=== PATIENT | female | born 1955 | race Caucasian/White ===

== ENCOUNTER → 2017-01-07 | Outpatient (CLI) | payer MEDICARE ==
--- NOTE | 2017-01-07 15:49 | CARD ---
APPROVED REPORT EXAM: Two-dimensional and M-mode echocardiogram with Doppler and color Doppler. Other Information Quality : Good INDICATION Dyspnea 2D DIMENSIONS Left Atrium(2D)2.1 (1.6-4.0cm)IVSd0.6 (0.7-1.1cm) Aortic Root(2D)2.6 (2.0-3.7cm)LVDd4.0 (3.9-5.9cm) LVOT Diameter1.8 (1.8-2.4cm)PWd0.6 (0.7-1.1cm) LVDs3.0 (2.5-4.0cm)FS (%) 25.4 % SV35.0 mlLVEF(%)55.0 (>50%) Aortic Valve AoV Peak Jayden.110.2cm/sAoV VTI21.9cm AO Peak GR.4.9mmHgLVOT Peak Jayden.75.3cm/s AO Mean GR.3mmHgAVA (VMAX)1.72cm2 Mitral Valve MV E Ogpuityz31.0cm/sMV DECEL RRQA264mi MV A Fsxfnmec02.4cm/sE/A Ratio0.8 Tricuspid Valve TR P. Wtwnewzw456gi/sRAP BVBEKPRY4caYf TR Peak Gr.99dwFgYIKD63mbAl Pulmonary Vein S1 Jjrkasal62.4cm/sD2 Eyruchta60.2cm/s LEFT VENTRICLE The left ventricle is normal size. There is normal left ventricular wall thickness. The left ventricu lar systolic function is normal. The Ejection Fraction is 55%. There is normal LV segmental wall liat on. Transmitral Doppler flow pattern is Grade I-abnormal relaxation pattern. RIGHT VENTRICLE The right ventricle is normal size. The right ventricular systolic function is normal. ATRIA The left atrium size is normal. The right atrium size is normal. The interatrial septum is intact wit h no evidence for an atrial septal defect or patent foramen ovale as noted on 2-D or Doppler imaging. AORTIC VALVE The aortic valve is normal in structure and function. Doppler and Color Flow revealed no significant aortic regurgitation. There is no significant aortic valvular stenosis. MITRAL VALVE The mitral valve is normal in structure and function. There is no evidence of mitral valve prolapse. There is no mitral valve stenosis. Doppler and Color-flow revealed trace mitral regurgitation. TRICUSPID VALVE The tricuspid valve is normal in structure and function. Doppler and Color Flow revealed mild tricusp id regurgitation. There is severe pulmonary hypertension. The PA pressure was estimated at 83 mmHg. T here is no tricuspid valve stenosis. PULMONIC VALVE The pulmonary valve is normal in structure and function. Doppler and Color Flow revealed no pulmonic valvular regurgitation. There is no pulmonic valvular stenosis. GREAT VESSELS The aortic root is normal in size. The ascending aorta is not well seen. The IVC is normal in size an d collapses >50% with inspiration. PERICARDIAL EFFUSION There is no evidence of significant pericardial effusion. Critical Notification Critical Value: No <Conclusion> The left ventricular systolic function is normal. The Ejection Fraction is 55%. There is normal LV segmental wall motion. Transmitral Doppler flow pattern is Grade I-abnormal relaxation pattern. Trace mitral regurgitation. Mild tricuspid regurgitation. There is severe pulmonary hypertension. The PA pressure was estimated at 83 mmHg. There is no evidence of significant pericardial effusion.
== END | disposition home or self-care (01) ==
LOC: ECHO 14:00
PROVIDERS: ATTEND Internal Medicine Cardiovascular Disease
DX: I08.1 Rheumatic disorders of both mitral and tricuspid valves (principal); I27.2 Other secondary pulmonary hypertension; R06.02 Shortness of breath; R06.00 Dyspnea, unspecified
CPT/HCPCS: 93306

== ENCOUNTER → 2017-01-15 | Outpatient (CLI) | payer MEDICARE ==
--- NOTE | 2017-01-15 11:49 | RAD ---
Chest x-ray Indication: COPD, palpitations and shortness of breath Technique: PA and lateral views of the chest Comparison: Previous study from 02/01/2010 Findings: Heart is normal in size. Lungs are hyperinflated with flattening of diaphragms and increased retrosternal space. No pneumothorax or pleural effusion. No focal consolidation or interstitial opacities. Multilevel degenerative changes in the spine. Otherwise, visualized bony first within normal limits. Impression: Findings of COPD. No acute cardiopulmonary process.
== END | disposition home or self-care (01) ==
LOC: LAB 10:43
PROVIDERS: ATTEND Internal Medicine Cardiovascular Disease
DX: J44.9 Chronic obstructive pulmonary disease, unspecified (principal); R00.2 Palpitations
CPT/HCPCS: 71020

== ENCOUNTER → 2019-10-02 | Outpatient (CLI) | payer MEDICARE ==
[2019-04-05 11:00] VITALS: BP 147/79
[~2019-10-02] MED LIST: ALBU2.5V8 INH; BUDE10.2 IH; CEFD300C PO; DOXY100C14 PO; Nicotine 21MG TD; PRED20TA PO; PRED5TAB PO; SERT25TA PO
--- NOTE | 2019-10-02 18:15 | RAD ---
EXAM: PET W CT SKULL TO MIDTHIGH EXAM DATE: 10/02/2019 INDICATION: Reason: / Spl. Instructions: / History: RADIOPHARMACEUTICAL: 12.1 mCi of F-18 Fluorodeoxyglucose (FDG) I.V. via the right antecubital fossa. TECHNIQUE: Patient weight: 112 pounds. Following at least four-hour fasting, the patient's blood glucose was 105 mg/dl. Approximately 1 hour after administration of FDG, overlapping emission scanning was performed from the orbital meatal line through the pelvis. A low-dose CT was performed for attenuation correction purposes and anatomic localization. Fused images of PET and CT were reviewed. Any standardized uptake values (SUV) reported are maximum values within a volume region of interest, expressed in gm/ml. COMPARISON: CT chest without IV contrast of 04/02/2019 FINDINGS: PET: In the head and neck, no abnormal FDG uptake is appreciated. In the chest, a spiculated right apical lung nodule shows abnormal FDG uptake to max SUV of 7.08. This compares with a background mediastinal activity of 2.00. A left lower lobe lobulated pulmonary nodule measures 8 mm on this exam and shows no abnormal FDG uptake. In the abdomen and pelvis, asymmetric FDG uptake in the left quadratus lumborum muscle to max SUV of 3.99 is present. There are no findings suspicious for metabolically active malignancy in the abdomen or pelvis. Background FDG uptake in liver measures 2.15. CT: Head and neck shows atherosclerotic calcifications in the bilateral carotid bulbs no cervical adenopathy. No intracranial pathology noted. The chest shows moderately advanced centrilobular emphysema. Previously reported infiltrate in the right middle lobe has since resolved. A spiculated right upper lobe pulmonary nodule measuring 1.5 cm has enlarged from 1.0 cm. A left lower lobe 8 mm pulmonary nodule is unchanged. No pleural effusion. There is respiratory motion artifact that degrades detail. The abdomen and pelvis show atherosclerotic calcifications in the abdominal aorta without aneurysmal dilation. The adrenal glands are unremarkable. No liver masses identified. No aggressive osseous lesions seen. IMPRESSION: 1. Hypermetabolic spiculated 1.5 cm right apical pulmonary nodule, highly suggestive of a primary malignancy. No other abnormal FDG uptake suspicious for metabolically active malignancy in the included field of view. 2. An 8 mm left lower lobe pulmonary nodule shows no abnormal FDG uptake. Recommend attention on follow-up chest CT in 3 months if not targeted for biopsy in the interval. It is unclear if this has enlarged from 4 mm previously or represents an intrapulmonary lymph node that is imaged slightly differently due to variation in respiratory motion. Electronically signed by: Debbie Moulton MD (10/02/2019 6:12 PM) [id number]
== END ==
LOC: PETSC 09:14
PROVIDERS: ATTEND Internal Medicine Pulmonary Disease
DX: C80.1 Malignant (primary) neoplasm, unspecified (principal); I70.0 Atherosclerosis of aorta; R91.1 Solitary pulmonary nodule; I65.23 Occlusion and stenosis of bilateral carotid arteries; J43.2 Centrilobular emphysema
CPT/HCPCS: 78815; A9552

== ENCOUNTER 2019-11-13 07:12 | Inpatient (IN) | payer MEDICARE ==
[~2019-11-13] VITALS: Ht 162.6 cm; Wt 50.7 kg
[2019-11-13] VITALS (31 sets, daily range): BP systolic 100–184; BP diastolic 45–107
[2019-11-13] MEDS ORDERED: SERT25TA PO (07:33)
[2019-11-13] MEDS ORDERED: ALPR0.254 PO (07:33)
[2019-11-13] MEDS ORDERED: FLUT1BLS3 IH (07:33)
[2019-11-13 07:56] LABS: BASO % 0 % (0-3); EOS # 0.1 x10^3/uL (0.0-0.7); EOS % 2 % (0-3); HEMATOCRIT 40.6 % (36.0-47.0); HEMOGLOBIN 13.8 g/dL (12.0-15.5); LYMPH # 1.6 x10^3/uL (1.0-4.8); LYMPH % 27 % (24-48); MEAN CORPUSCULAR HEMOGLOBIN 34 pg (25-35); MEAN CORPUSCULAR HGB CONC 34 g/dL (31-37); MEAN CORPUSCULAR VOLUME 101 fL (79-100); MONO # 0.6 x10^3/uL (0.0-1.1); MONO % 10 % (0-9); NEUT # 3.8 x10^3/uL (1.8-7.7); NEUT % 62 % (31-73); PLATELET COUNT 332 x10^3/uL (140-400); RED BLOOD COUNT 4.01 x10^6/uL (3.50-5.40); RED CELL DISTRIBUTION WIDTH 12.4 % (11.5-14.5); WHITE BLOOD COUNT 6.1 x10^3/uL (4.0-11.0)
[2019-11-13 08:09] LABS: PROTHROMBIN TIME PATIENT 12.4 SEC (11.7-14.0)
[2019-11-13] MEDS ORDERED: LIDOCAINE WITH 8.4% SOD BICARB 3 ML DISP.SYRIN. ONE ×2 (08:13→09:17)
[2019-11-13] MEDS ORDERED: MIDAZOLAM HCL/PF 2 MG/2 ML VIAL. ONE (08:30)
[2019-11-13] MEDS ORDERED: fentaNYL PF VIAL 100 MCG/2 ML VIAL ONE (08:30)
[2019-11-13] MEDS ORDERED: fentaNYL PF VIAL 100 MCG/2 ML VIAL IV ONE (08:45)
[2019-11-13] MEDS ORDERED: LIDOCAINE WITH 8.4% SOD BICARB 3 ML DISP.SYRIN. IJ ONE (08:45)
[2019-11-13] MEDS ORDERED: MIDAZOLAM HCL/PF 2 MG/2 ML VIAL. IV ONE (08:45)
[2019-11-13] MEDS ORDERED: GELATIN SPONGE SIZE 12-7MM SPONGE. ONE (09:05)
[2019-11-13] MEDS: IPRATRPIUM/ALBUTEROL 0.5/2.5MG 3 ML NEBU. NEB SCH ×3 (11:43→20:27)
--- NOTE | 2019-11-13 11:46 | CONS ---
DATE OF CONSULTATION: PULMONARY CONSULTATION ATTENDING PHYSICIAN: Sheryl Galvez MD. REASON FOR CONSULTATION: Pneumothorax, status post lung biopsy. HISTORY OF PRESENT ILLNESS: The patient is a 64-year-old who has a long history of tobacco use. She has been followed by Dr. Tierney in the office. The patient smoked for at least 45 years. She had a recent CAT scan done, which showed that there was a spiculated right upper lobe nodule, which is increased in size to 1.5 cm from previous size of 1.1 cm. She underwent PET scan and showed a hypermetabolic lung nodule. There was another 8 mm nodule in the left lower lobe, which did not show any hypermetabolic activity. Today, she underwent a CT-guided biopsy and developed a pneumothorax post-biopsy. As a result, she required chest tube. She has an air leak. I have reviewed the chest x-ray. There may be a tiny right apical pneumo. She is in no obvious respiratory distress. She is on home oxygen at 2 liters. PAST MEDICAL HISTORY: Significant for COPD and history of anxiety. PAST SURGICAL HISTORY: None. MEDICATIONS: Reviewed as listed in the MRAD. REVIEW OF SYSTEMS: Twelve-point system obtained. Pertinent positives discussed in my history of present illness, otherwise noncontributory. All systems that were negative were reviewed as well. SOCIAL HISTORY: Smoked for about 45 years. No history of alcohol use. FAMILY HISTORY: Noncontributory to lungs. PHYSICAL EXAMINATION: VITAL SIGNS: Reviewed. Stable. Pulse ox is 95% on 4 liters, afebrile. Blood pressure is stable. NECK: Supple. LUNGS: With diminished breath sounds. CARDIOVASCULAR: With a regular rate. ABDOMEN: Soft. EXTREMITIES: With no pitting edema. LABORATORY DATA: Reviewed. White cell count 6.1, hemoglobin 13.8, and platelets are 332. INR is 1.0. PFTs showed a FEV1 of 0.76, which is 34% predicted, ratio is severely reduced, this is consistent with severe COPD. Diffusion capacity 30% predicted. IMPRESSION: 1. acute on chronic hypoxic respiratory failure secondary to pneumothorax./ UNDERLYING SEVERE COPD 2. Spiculated right upper lobe nodule with increased growth and hypermetabolic activity seen in the right upper lobe nodule, which now measures 1.5 cm as opposed to 1.1 cm in 01/2019. This is highly suggestive of malignancy. She is status post biopsy. 3. End-stage chronic obstructive pulmonary disease with an FEV1 of 0.76, which is 34% predicted and severely reduced diffusion capacity, which is 30% predicted. She is not a surgical candidate based on severity of lung disease. 4. Status post pneumothorax post CT-guided biopsy. She does have an air leak on Pleur-evac. Chest x-ray with probably tiny right atypical pneumo. RECOMMENDATIONS: 1. Continue present oxygen at 4 liters. She has acute on chronic hypoxic respiratory failure secondary to pneumothorax. 2. Continue to monitor for air leak. 3. Follow chest x-ray. 4. Add bronchodilators. 5. Await for the final biopsy results. 6. Once malignancy is confirmed, then she may benefit from palliative radiation. Based on her lung function, she is not a surgical candidate. Discussed with the patient's daughter and RN. PASCUAL CANO MD DR: JC/marissa JOB#: [id number] / [id number] ADRIANA
--- NOTE | 2019-11-13 11:48 | RAD ---
AP chest. HISTORY: Chest tube placement, pneumothorax post lung biopsy, right lung mass AP view was taken of the chest. There are changes from emphysema and chronic obstructive pulmonary disease. There is a right chest tube in place. There is a small right apical pneumothorax. There is no pleural effusion. Heart is normal in size. IMPRESSION: 1. Right chest tube in place. 2. Tiny right apical pneumothorax. Electronically signed by: Roscoe Sierra MD (11/13/2019 11:45 AM) [id number]
[2019-11-13] MEDS ORDERED: ALPRAZolam 0.25 MG TABLET PO PRN (13:15)
[2019-11-13] MEDS ORDERED: oxyCODONE/APAP 5/325 1 TAB TABLET PO PRN (13:15)
[2019-11-13] MEDS ORDERED: DOCUSATE SODIUM 100 MG CAPSULE. PO PRN (13:15)
[2019-11-13] MEDS ORDERED: ZOLPIDEM 5 MG TABLET. PO PRN (13:15)
--- NOTE | 2019-11-13 13:34 | NUR ---
SS following for discharge planning. SS reviewed pt chart and discussed with pt RN. Pt is from home and is currently requiring oxygen. Pt had lung biopsy today and chest tube placement today. Pt has home oxygen. SS will continue to follow for discharge planning.
--- NOTE | 2019-11-13 14:08 | PDOC1 ---
History and Physical Date of Admission Date of Admission DATE: 11/13/19 TIME: 14:02 Identification/Chief Complaint Chief Complaint chest pain Source Source: Chart review, Patient History of Present Illness History of Present Illness I was called for admit this AM after pneumothorax seen after proceedure. Pt has COPD, known severe disease and follows with Dr. Tierney, she came in today for a biopsy of a lung mass, if pos would be eligible for palliative radiation ' Past Medical History Cardiovascular: HTN Pulmonary: COPD GI: No pertinent hx Heme/Onc: No pertinent hx Hepatobiliary: No pertinent hx Psych: No pertinent hx Infectious disease: No pertinent hx Renal/: No pertinent hx Endocrine: No pertinent hx Past Surgical History Past Surgical History: No pertinent history Family History Family History: Chronic Bronchitis, High Cholestrol, Hypertension Social History Smoke: Quit (45 pack/yr history) ALCOHOL: rare Drugs: None Current Medications Current Medications Current Medications Lidocaine HCl (Buffered Lidocaine 1%) 3 ml STK-MED ONCE .ROUTE ; Start 11/13/19 at 08:13; Stop 11/13/19 at 08:13; Status DC Midazolam HCl (Versed) 2 mg STK-MED ONCE .ROUTE ; Start 11/13/19 at 08:30; Stop 11/13/19 at 08:30; Status DC Fentanyl Citrate (Fentanyl 2ml Vial) 100 mcg STK-MED ONCE .ROUTE ; Start 11/13/19 at 08:30; Stop 11/13/19 at 08:30; Status DC Lidocaine HCl (Buffered Lidocaine 1%) 3 ml 1X ONCE IJ Last administered on 11/13/19at 09:35; Start 11/13/19 at 08:45; Stop 11/13/19 at 08:46; Status DC Midazolam HCl (Versed) 2 mg 1X ONCE IV Last administered on 11/13/19at 09:36; Start 11/13/19 at 08:45; Stop 11/13/19 at 08:46; Status DC Fentanyl Citrate (Fentanyl 2ml Vial) 100 mcg 1X ONCE IV Last administered on 11/13/19at 09:36; Start 11/13/19 at 08:45; Stop 11/13/19 at 08:46; Status DC Gelatin (Gelfoam Size 12-7mm) 1 each STK-MED ONCE .ROUTE ; Start 11/13/19 at 09:05; Stop 11/13/19 at 09:06; Status DC Lidocaine HCl (Buffered Lidocaine 1%) 3 ml STK-MED ONCE .ROUTE ; Start 11/13/19 at 09:17; Stop 11/13/19 at 09:17; Status DC Albuterol/ Ipratropium (Duoneb) 3 ml RTQID NEB Last administered on 11/13/19at 11:43; Start 11/13/19 at 12:00 Alprazolam (Xanax) 0.25 mg PRN Q6HRS PRN PO ANXIETY / AGITATION; Start 11/13/19 at 13:15 Sertraline HCl (Zoloft) 25 mg DAILY PO ; Start 11/14/19 at 09:00 Non-Formulary Medication (Fluticasone/ Umeclidin/ Vilanter (Trelegy Ellipta 100-62.5-25)) 1 each DAILY IH ; Start 11/14/19 at 09:00; Status UNV Oxycodone/ Acetaminophen (Percocet 5/325) 1 tab PRN Q4HRS PRN PO PAIN; Start 11/13/19 at 13:15 Zolpidem Tartrate (Ambien) 5 mg PRN QHS PRN PO INSOMNIA; Start 11/13/19 at 13:15 Docusate Sodium (Colace) 100 mg PRN DAILY PRN PO HARD STOOLS; Start 11/13/19 at 13:15 Active Scripts Active Reported Alprazolam 0.25 Mg Tablet 0.25 Mg PO PRN Q6HRS PRN Zoloft (Sertraline Hcl) 25 Mg Tablet 1 Tab PO DAILY Trelegy Ellipta 100-62.5-25 (Fluticasone/Umeclidin/Vilanter) 1 Each Blst.w.dev 1 Each IH DAILY Allergies Allergies: Coded Allergies: No Known Drug Allergies (Unverified , 10/08/18) ROS General: No: Chills, Night Sweats, Fatigue, Malaise, Appetite, Other PSYCHOLOGICAL ROS: No: Anxiety, Behavioral Disorder, Concentration difficultie, Decreased libido, Depression, Disorientation, Hallucinations, Hostility, Irritablity, Memory difficulties, Mood Swings, Obsessive thoughts, Physical abuse, Sexual abuse, Sleep disturbances, Suicidal ideation, Other Eyes: No Blurry vision, No Decreased vision, No Double vision, No Dry eyes, No Excessive tearing, No Eye Pain, No Itchy Eyes, No Loss of vision, No Photophobia, No Scotomata, No Uses contacts, No Uses glasses, No Other HEENT: No: Heacaches, Visual Changes, Hearing change, Nasal congestion, Nasal discharge, Oral lesions, Sinus pain, Sore Throat, Epistaxis, Sneezing, Snoring, Tinnitus, Vertigo, Vocal changes, Other Respiratory: No: Cough, Hemoptysis, Orthopnea, Pleuritic Pain, Shortness of breath, SOB with excertion, Sputum Changes, Stridor, Tachypnea, Wheezing, Other Cardiovascular: yes Chest Pain (sore); No Palpitations, No Orthopnea, No Paroxysmal Noc. Dyspnea, No Edema, No Lt Headedness, No Other Gastrointestinal: Yes Nausea Genitourinary: No Dysuria, No Frequency, No Incontinence, No Hematuria, No Retention, No Discharge, No Urgency, No Pain, No Flank Pain, No Other, No , No , No , No , No , No , No Musculoskeletal: No Gait Disturbance, No Joint Pain, No Joint Stiffness, No Joint Swelling, No Muscle Pain, No Muscular Weakness, No Pain In:, No Swelling In:, No Other Neurological: No Behavorial Changes, No Bowel/Bladder ControlChng, No Confusion, No Dizziness, No Gait Disturbance, No Headaches, No Impaired Coord/balance, No Memory Loss, No Numbness/Tingling, No Seizures, No Speech Problems, No Tremors, No Visual Changes, No Weakness, No Other Skin: Yes Dry Skin, Yes Pruritus; No Eczema, No Hair Changes, No Lumps, No Mole Changes, No Mottling, No Nail Changes, No Rash, No Skin Lesion Changes, No Other, No Acne Physical Exam General: Alert, Oriented X3, Cooperative, No acute distress HEENT: Atraumatic, PERRLA, Mucous membr. moist/pink Lungs: Normal air movement Heart: S1S2, no murmurs Abdomen: Normal bowel sounds, Soft Extremities: No cyanosis, No edema, Normal pulses Skin: No breakdown Neuro: Cranial nerves 3-12 NL Psych/Mental Status: Mood NL Vitals Vitals Vital Signs Date Time Temp Pulse Resp B/P (MAP) Pulse Ox O2 Delivery O2 Flow Rate FiO2 11/13/19 12:42 Nasal Cannula 4.0 11/13/19 11:44 98 11/13/19 10:56 62 24 145/56 (85) 11/13/19 09:45 97.7 97.7 Labs Labs Laboratory Tests Test 11/13/19 07:42 White Blood Count 6.1 x10^3/uL (4.0-11.0) Red Blood Count 4.01 x10^6/uL (3.50-5.40) Hemoglobin 13.8 g/dL (12.0-15.5) Hematocrit 40.6 % (36.0-47.0) Mean Corpuscular Volume 101 fL (79-100) Mean Corpuscular Hemoglobin 34 pg (25-35) Mean Corpuscular Hemoglobin Concent 34 g/dL (31-37) Red Cell Distribution Width 12.4 % (11.5-14.5) Platelet Count 332 x10^3/uL (140-400) Neutrophils (%) (Auto) 62 % (31-73) Lymphocytes (%) (Auto) 27 % (24-48) Monocytes (%) (Auto) 10 % (0-9) Eosinophils (%) (Auto) 2 % (0-3) Basophils (%) (Auto) 0 % (0-3) Neutrophils # (Auto) 3.8 x10^3/uL (1.8-7.7) Lymphocytes # (Auto) 1.6 x10^3/uL (1.0-4.8) Monocytes # (Auto) 0.6 x10^3/uL (0.0-1.1) Eosinophils # (Auto) 0.1 x10^3/uL (0.0-0.7) Basophils # (Auto) 0.0 x10^3/uL (0.0-0.2) Prothrombin Time 12.4 SEC (11.7-14.0) Prothromb Time International Ratio 1.0 (0.8-1.1) Activated Partial Thromboplast Time 35 SEC (24-38) Laboratory Tests Test 11/13/19 07:42 White Blood Count 6.1 x10^3/uL (4.0-11.0) Red Blood Count 4.01 x10^6/uL (3.50-5.40) Hemoglobin 13.8 g/dL (12.0-15.5) Hematocrit 40.6 % (36.0-47.0) Mean Corpuscular Volume 101 fL (79-100) Mean Corpuscular Hemoglobin 34 pg (25-35) Mean Corpuscular Hemoglobin Concent 34 g/dL (31-37) Red Cell Distribution Width 12.4 % (11.5-14.5) Platelet Count 332 x10^3/uL (140-400) Neutrophils (%) (Auto) 62 % (31-73) Lymphocytes (%) (Auto) 27 % (24-48) Monocytes (%) (Auto) 10 % (0-9) Eosinophils (%) (Auto) 2 % (0-3) Basophils (%) (Auto) 0 % (0-3) Neutrophils # (Auto) 3.8 x10^3/uL (1.8-7.7) Lymphocytes # (Auto) 1.6 x10^3/uL (1.0-4.8) Monocytes # (Auto) 0.6 x10^3/uL (0.0-1.1) Eosinophils # (Auto) 0.1 x10^3/uL (0.0-0.7) Basophils # (Auto) 0.0 x10^3/uL (0.0-0.2) Prothrombin Time 12.4 SEC (11.7-14.0) Prothromb Time International Ratio 1.0 (0.8-1.1) Activated Partial Thromboplast Time 35 SEC (24-38) VTE Prophylaxis Ordered VTE Prophylaxis Devices: No VTE Pharmacological Prophylaxi: Yes Assessment/Plan Assessment/Plan acute new pneumothorax, post procedure, acute on chronic hypoxic respiratory failure COPD, severe, FEV1 of 0.76 right upper lobe nodule supicious for cancer. 1.5cm Justicifation of Admission Dx: Justifications for Admission: Justification of Admission Dx: Yes Comments: pneumothorax, new chest pain NAKUL PANDA MD Nov 13, 2019 14:07
[2019-11-13] MEDS ORDERED: diphenhydrAMINE HCL 25 MG CAPSULE PO PRN (14:15)
--- NOTE | 2019-11-13 15:07 | RAD ---
11/13/[address]-guided biopsy, right upper lobe pulmonary nodule 2. Right-sided chest tube placement, CT-guided Clinical Indication: RIGHT LUNG MASS Discussion: The procedure was explained in its entirety to the patient or the patients designated technical support representative by a member of the treatment team, including a discussion of the risks, benefits and commonly accepted alternatives to the procedure, as well as the expected consequences of no therapy whatsoever. Discussion of the risks included, but was not limited to, those that are most frequent and those that are rare but possibly severe or life-threatening, as well as the possibility of unforeseen complications. All elements of maximal sterile barrier technique including the use of a cap, mask, sterile gown, sterile gloves, large sterile sheet, appropriate hand hygiene, and 2% chlorhexidine for cutaneous antisepsis (or acceptable alternative antiseptic per current guidelines) were followed for this procedure. Patient was placed in the prone position. CT imaging redemonstrates a spiculated nodule right upper lobe concerning for primary lung neoplasm. 1% lidocaine was administered for local anesthesia to the skin and subcutaneous tissues. Under intermittent CT guidance a 17-gauge needles advanced into the nodule. Core biopsies were obtained and placed in formalin. The needle was removed. Post biopsy pneumothorax was noted, rapidly increasing over approximately 5 minutes. The patient was positioned supine. The anterior chest was prepped and draped in a identical fashion. A 5 Syrian sheath needle was advanced to the pleural space which was confirmed by aspiration of air. A guidewire was advanced into the pleural space over which following dilatation and 8 Syrian chest tube was placed. Aspiration was performed until pneumothorax is essentially resolved. The catheter was placed to a Pleur-evac device at -20 cm water. The catheter was secured in place. Sterile dressings were applied. No immediate complications were identified. The patient remained hemodynamically stable throughout. The procedures performed under conscious sedation including continuous cardiopulmonary monitoring via dedicated sedation nurse. [id number] sedation time: 62 minutes Impression: 1. CT-guided biopsy, right upper lobe nodule 2. CT-guided chest tube placement, right-sided
[2019-11-13] MEDS ORDERED: ACETAMINOPHEN 325 MG TABLET. PO PRN (22:15)
[2019-11-14 03:00] VITALS: BP 145/88
[2019-11-14 07:16] VITALS: BP 139/63
[2019-11-14] MEDS: IPRATRPIUM/ALBUTEROL 0.5/2.5MG 3 ML NEBU. NEB SCH ×4 (07:25→19:47)
--- NOTE | 2019-11-14 07:37 | RAD ---
AP chest. HISTORY: Pneumothorax AP view was taken of the chest. There is a small right apical pneumothorax with mild increase compared to the study from one day ago. Heart is normal in size. There is no pleural effusion. No new infiltrates are noted. IMPRESSION: 1. Small right apical pneumothorax with mild increase. Electronically signed by: Roscoe Sierra MD (11/14/2019 7:34 AM) [facility]
[2019-11-14] MEDS: SERTRALINE 25 MG TABLET. PO SCH (08:33)
[2019-11-14] MEDS: VITAMIN B12,B9,B6 COMPLEX 1 TABLET. PO SCH (08:33)
[2019-11-14] MEDS ORDERED: NON FORMULARY ITEM (Fluticasone/Umeclidin/Vilanter (Trelegy Ellipta 100-62.5-25) 1 EACH) IH SCH (09:00)
--- NOTE | 2019-11-14 10:19 | PDOC ---
PULMONARY PROGRESS NOTES Subjective on 02, sob better, has occ cough, chest tube in Vitals Vital Signs Date Time Temp Pulse Resp B/P (MAP) Pulse Ox O2 Delivery O2 Flow Rate FiO2 11/14/19 08:25 Nasal Cannula 2.0 11/14/19 07:26 98 11/14/19 07:16 97.7 87 21 139/63 (88) 97.7 ROS: No Nausea General: Alert, Oriented X4 HEENT: Other (nc at perrl nose throat clear) Lungs: Other (deminished bs r ct) Cardiovascular: S1, S2 Abdomen: Soft, Non-tender Neuro Exam: Alert Extremities: No Edema Skin: Warm Labs Laboratory Tests Test 11/13/19 07:42 White Blood Count 6.1 x10^3/uL (4.0-11.0) Red Blood Count 4.01 x10^6/uL (3.50-5.40) Hemoglobin 13.8 g/dL (12.0-15.5) Hematocrit 40.6 % (36.0-47.0) Mean Corpuscular Volume 101 fL (79-100) Mean Corpuscular Hemoglobin 34 pg (25-35) Mean Corpuscular Hemoglobin Concent 34 g/dL (31-37) Red Cell Distribution Width 12.4 % (11.5-14.5) Platelet Count 332 x10^3/uL (140-400) Neutrophils (%) (Auto) 62 % (31-73) Lymphocytes (%) (Auto) 27 % (24-48) Monocytes (%) (Auto) 10 % (0-9) Eosinophils (%) (Auto) 2 % (0-3) Basophils (%) (Auto) 0 % (0-3) Neutrophils # (Auto) 3.8 x10^3/uL (1.8-7.7) Lymphocytes # (Auto) 1.6 x10^3/uL (1.0-4.8) Monocytes # (Auto) 0.6 x10^3/uL (0.0-1.1) Eosinophils # (Auto) 0.1 x10^3/uL (0.0-0.7) Basophils # (Auto) 0.0 x10^3/uL (0.0-0.2) Prothrombin Time 12.4 SEC (11.7-14.0) Prothromb Time International Ratio 1.0 (0.8-1.1) Activated Partial Thromboplast Time 35 SEC (24-38) Medications Active Scripts Medications Dose Route/Sig Max Daily Dose Days Date Category Alprazolam 0.25 Mg Tablet 0.25 Mg PO PRN Q6HRS PRN 11/13/19 Reported Zoloft (Sertraline Hcl) 25 Mg Tablet 1 Tab PO DAILY 11/13/19 Reported Trelegy Ellipta 100-62.5-25 (Fluticasone/Umeclidin/Vilanter) 1 Each Blst.w.dev 1 Each IH DAILY 11/13/19 Reported Comments cxr reviewed 1. Small right apical pneumothorax with mild increase. Impression . IMPRESSION: 1. acute on chronic hypoxic respiratory failure secondary to pneumothorax./ UNDERLYING SEVERE COPD 2. Spiculated right upper lobe nodule with increased growth and hypermetabolic activity seen in the right upper lobe nodule, which now measures 1.5 cm as opposed to 1.1 cm in 01/2019. This is highly suggestive of malignancy. She is status post biopsy. 3. End-stage chronic obstructive pulmonary disease with an FEV1 of 0.76, which is 34% predicted and severely reduced diffusion capacity, which is 30% predicted. She is not a surgical candidate based on severity of lung disease. 4. Status post pneumothorax post CT-guided biopsy. She does have an air leak on Pleur-evac. Chest x-ray small right atypical pneumo. Plan . RECOMMENDATIONS: 1. Continue present oxygen. She has acute on chronic hypoxic respiratory failure secondary to pneumothorax. 2. Continue to monitor for air leak. still has air leak cont ct cont suction 3. Follow chest x-ray. 4. bronchodilators. 5. Await for the final biopsy results. 6. BD 7. start lovenox for dvt prophylaxis Once malignancy is confirmed, then she may benefit from palliative radiation. Based on her lung function, she is not a surgical candidate. Discussed with the patient and RN. JOHNNA KOO MD Nov 14, 2019 10:19
[2019-11-14 10:52] VITALS: BP 144/94
--- NOTE | 2019-11-14 11:14 | PDOC ---
[facility] PROGRESS NOTE Chief Complaint Chief Complaint acute new pneumothorax, post procedure, acute on chronic hypoxic respiratory failure COPD, severe, FEV1 of 0.76 right upper lobe nodule supicious for cancer. 1.5cm Appreciate pulmonary recommendations, continue to titrate oxygen. Currently at 4 L. Chest tube continues to has persistent air leak on continuous suction. Repeat chest x-ray in the a.m. DuoNebs as needed Await final pathology results from lung biopsy. Once malignant malignancy is confirmed she may benefit from palliative radiation. SCD and ambulation for DVT prophylaxis Regular diet Full code Discussed with RN and SW Dispo pending chest tube removal and pathology results Surrogate decision maker is self History of Present Illness History of Present Illness 64-year-old who has a long history of tobacco use. She has been followed by Dr. Tierney in the office. The patient smoked for at least 45 years. She had a recent CAT scan done, which showed that there was a spiculated right upper lobe nodule, which is increased in size to 1.5 cm from previous size of 1.1 cm. She underwent PET scan and showed a hypermetabolic lung nodule. There was another 8 mm nodule in the left lower lobe, which did not show any hypermetabolic activity. Today, she underwent a CT-guided biopsy and developed a pneumothorax post-biopsy. As a result, she required chest tube. She has an air leak. I have reviewed the chest x-ray. There may be a tiny right apical pneumo. She is in no obvious respiratory distress. Chest tube was placed and placed on suction 11/14/2019 No acute events overnight. Chest tube continues to have persistent air leak while on continuous suction. Patient seen and examined bedside. Patient's chart, labs, images were reviewed and discussed with RN Vitals/I&O Vitals/I&O: Vital Signs Date Time Temp Pulse Resp B/P (MAP) Pulse Ox O2 Delivery O2 Flow Rate FiO2 11/14/19 10:52 98.3 97 27 144/94 (111) 93 Nasal Cannula 2.0 98.3 I & O 11/13/19 11/13/19 11/14/19 15:00 23:00 07:00 Intake Total 240 ml Output Total 135 ml 100 ml Balance 240 ml -135 ml -100 ml Physical Exam Physical Exam: General: Alert, Oriented X3, Cooperative, No acute distress HEENT: Atraumatic, PERRLA, Mucous membr. moist/pink Lungs: Normal air movement. Intact chest tube placed. Pleur-evac with persistent air leak. Serosanguineous drainage Heart: S1S2, no murmurs Abdomen: Normal bowel sounds, Soft Extremities: No cyanosis, No edema, Normal pulses Skin: No breakdown Neuro: Cranial nerves 3-12 NL Psych/Mental Status: Mood NL General: Alert, Oriented X3, Cooperative, No acute distress Lungs: Other Abdomen: Normal bowel sounds, Soft Extremities: No cyanosis, No edema, Normal pulses Skin: No breakdown Labs Labs: All labs, images, and reports were reviewed by me personally Review of Systems Review of Systems: CONSTITUIONAL: Denies weight loss, fever and chills. HEENT: Denies changes in vision and hearing. RESPIRATORY: Denies SOB and cough. CV: Denies palpitations and CP. GI: Denies abdominal pain, nausea, vomiting and diarrhea. : Denies dysuria and urinary frequency. MSK: Denies myalgia and joint pain. SKIN: Denies rash and pruritus. NEUROLOGICAL: Denies headache and syncope. PSYCHIATRIC: Denies recent changes in mood. Denies anxiety and depression. Comment Review of Relevant I have reviewed the following items rohit (where applicable) has been applied. Medications: Current Medications Medications (Trade) Dose Ordered Sig/Austen Route PRN Reason Start Time Stop Time Status Last Admin Dose Admin Albuterol/ Ipratropium (Duoneb) 3 ml RTQID NEB 11/13/19 12:00 11/14/19 07:25 Sertraline HCl (Zoloft) 25 mg DAILY PO 11/14/19 09:00 11/14/19 08:33 Vitamin B Complex (Folbic Tablet) 1 tab DAILY PO 11/14/19 09:00 11/14/19 08:33 Justicifation of Admission Dx: Justifications for Admission: Justification of Admission Dx: Yes JM KNIGHT MD Nov 14, 2019 11:14
[2019-11-14 15:08] VITALS: BP 150/76
[2019-11-14] MEDS ORDERED: ENOXAPARIN 30 MG/0.3 ML SYRINGE. SQ SCH (18:00)
[2019-11-14 19:00] VITALS: BP 128/67
[2019-11-14 23:00] VITALS: BP 145/58
[2019-11-15 03:00] VITALS: BP 132/80
[2019-11-15 07:00] VITALS: BP 151/69
[2019-11-15] MEDS: IPRATRPIUM/ALBUTEROL 0.5/2.5MG 3 ML NEBU. NEB SCH ×4 (07:19→20:20)
[2019-11-15] MEDS: VITAMIN B12,B9,B6 COMPLEX 1 TABLET. PO SCH (07:59)
[2019-11-15] MEDS: SERTRALINE 25 MG TABLET. PO SCH (08:00)
[2019-11-15] MEDS: PANTOPRAZOLE 40 MG TABLET.DR. PO SCH (08:00)
--- NOTE | 2019-11-15 09:11 | RAD ---
AP chest. HISTORY: Pneumothorax AP view was taken of the chest. There is a small right apical pneumothorax with mild decrease compared to one day ago. There are changes of chronic obstructive pulmonary disease. Heart is normal in size. Right chest tube is unchanged. IMPRESSION: 1. Small right apical pneumothorax with decrease compared to the prior study. Electronically signed by: Roscoe Sierra MD (11/15/2019 9:08 AM) [facility]
--- NOTE | 2019-11-15 10:19 | PDOC ---
PULMONARY PROGRESS NOTES Subjective on 02, sob better, has occ cough, had small amount of bloody sputum yesterday, nothing today, chest tube in Vitals Vital Signs Date Time Temp Pulse Resp B/P (MAP) Pulse Ox O2 Delivery O2 Flow Rate FiO2 11/15/19 08:00 Nasal Cannula 2.0 11/15/19 07:20 97 11/15/19 07:00 97.9 74 20 151/69 (96) 97.9 ROS: No Nausea General: Alert, Oriented X4 HEENT: Other (nc at perrl nose throat clear) Lungs: Other (deminished bs r ct) Cardiovascular: S1, S2 Abdomen: Soft, Non-tender Neuro Exam: Alert Extremities: No Edema Skin: Warm Medications Active Scripts Medications Dose Route/Sig Max Daily Dose Days Date Category Alprazolam 0.25 Mg Tablet 0.25 Mg PO PRN Q6HRS PRN 11/13/19 Reported Zoloft (Sertraline Hcl) 25 Mg Tablet 1 Tab PO DAILY 11/13/19 Reported Trelegy Ellipta 100-62.5-25 (Fluticasone/Umeclidin/Vilanter) 1 Each Blst.w.dev 1 Each IH DAILY 11/13/19 Reported Comments cxr reviewed 1. Small right apical pneumothorax , smaller Impression . IMPRESSION: 1. acute on chronic hypoxic respiratory failure secondary to pneumothorax./ UNDERLYING SEVERE COPD 2. Spiculated right upper lobe nodule with increased growth and hypermetabolic activity seen in the right upper lobe nodule, which now measures 1.5 cm as opposed to 1.1 cm in 01/2019. This is highly suggestive of malignancy. She is status post biopsy. 3. End-stage chronic obstructive pulmonary disease with an FEV1 of 0.76, which is 34% predicted and severely reduced diffusion capacity, which is 30% predicted. She is not a surgical candidate based on severity of lung disease. 4. Status post pneumothorax post CT-guided biopsy. no air leak. Chest x-ray small right apical pneumo. Plan . RECOMMENDATIONS: 1. Continue present oxygen. She has acute on chronic hypoxic respiratory failure secondary to pneumothorax. 2. no air leak today but has ptx in cxr, will cont suction, cxr in am. 3. Follow chest x-ray. 4. bronchodilators. 5. Await for the final biopsy results 6. lovenox for dvt prophylaxis Once malignancy is confirmed, then she may benefit from palliative radiation. Based on her lung function, she is not a surgical candidate. Discussed with the patient and RN, dr kenneyd. JOHNNA KOO MD Nov 15, 2019 10:19
[2019-11-15 10:20] VITALS: BP 118/53
--- NOTE | 2019-11-15 11:27 | PDOC ---
[facility] PROGRESS NOTE Chief Complaint Chief Complaint acute right pneumothorax, status post chest tube placement 11/13/2019 acute on chronic hypoxic respiratory failure COPD, severe, FEV1 of 0.76 right upper lobe nodule supicious for cancer. 1.5cm Chest x-ray ordered for tomorrow in the morning Appreciate pulmonary recommendations, continue to titrate oxygen. Currently at 4 L. Chest tube continues to has persistent air leak on continuous suction. Repeat chest x-ray in the a.m. DuoNebs as needed Await final pathology results from lung biopsy. Once malignant malignancy is confirmed she may benefit from palliative radiation. SCD and ambulation for DVT prophylaxis Regular diet Full code Discussed with RN and SW Dispo pending chest tube removal and pathology results Surrogate decision maker is self History of Present Illness History of Present Illness 64-year-old who has a long history of tobacco use. She has been followed by Dr. Tierney in the office. The patient smoked for at least 45 years. She had a recent CAT scan done, which showed that there was a spiculated right upper lobe nodule, which is increased in size to 1.5 cm from previous size of 1.1 cm. She underwent PET scan and showed a hypermetabolic lung nodule. There was another 8 mm nodule in the left lower lobe, which did not show any hypermetabolic activity. Today, she underwent a CT-guided biopsy and developed a pneumothorax post-biopsy. As a result, she required chest tube. She has an air leak. I have reviewed the chest x-ray. There may be a tiny right apical pneumo. She is in no obvious respiratory distress. Chest tube was placed and placed on suction 11/15/2019 No acute events overnight. Patient seen and examined bedside. Chest x-ray with improved aeration and apical pneumothorax has decreased. Patient's chart, labs, images were reviewed and discussed with RN 11/14/2019 No acute events overnight. Chest tube continues to have persistent air leak while on continuous suction. Patient seen and examined bedside. Patient's chart, labs, images were reviewed and discussed with RN Vitals/I&O Vitals/I&O: Vital Signs Date Time Temp Pulse Resp B/P (MAP) Pulse Ox O2 Delivery O2 Flow Rate FiO2 11/15/19 11:21 98 Nasal Cannula 2.0 11/15/19 10:20 98.0 86 20 118/53 (74) 98.0 I & O 11/14/19 11/14/19 11/15/19 15:00 23:00 07:00 Intake Total 200 ml 740 ml 100 ml Output Total 160 ml 525 ml 580 ml Balance 40 ml 215 ml -480 ml Physical Exam Physical Exam: General: Alert, Oriented X3, Cooperative, No acute distress HEENT: Atraumatic, PERRLA, Mucous membr. moist/pink Lungs: Normal air movement. Intact chest tube placed. Pleur-evac with persistent air leak. Serosanguineous drainage Heart: S1S2, no murmurs Abdomen: Normal bowel sounds, Soft Extremities: No cyanosis, No edema, Normal pulses Skin: No breakdown Neuro: Cranial nerves 3-12 NL Psych/Mental Status: Mood NL General: Alert, Oriented X3, Cooperative, No acute distress Lungs: Other (deminished bs r ct) Abdomen: Normal bowel sounds, Soft Extremities: No cyanosis, No edema, Normal pulses Skin: No breakdown Comment Review of Relevant I have reviewed the following items rohit (where applicable) has been applied. Medications: Current Medications Medications (Trade) Dose Ordered Sig/Austen Route PRN Reason Start Time Stop Time Status Last Admin Dose Admin Enoxaparin Sodium (Lovenox 30mg Syringe) 30 mg Q24H SQ 11/14/19 18:00 11/14/19 18:36 Pantoprazole Sodium (Protonix) 40 mg DAILYAC PO 11/15/19 07:30 11/15/19 08:00 Justicifation of Admission Dx: Justifications for Admission: Justification of Admission Dx: Yes JM KNIGHT MD Nov 15, 2019 11:27
[2019-11-15 15:04] VITALS: BP 134/53
[2019-11-15] MEDS: ENOXAPARIN 40 MG/0.4 ML SYRINGE. SQ SCH (17:54)
[2019-11-15 19:00] VITALS: BP 138/66
[2019-11-15 23:00] VITALS: BP 146/74
[2019-11-16 02:59] VITALS: BP 121/51
[2019-11-16 07:00] VITALS: BP 124/60
[2019-11-16] MEDS: IPRATRPIUM/ALBUTEROL 0.5/2.5MG 3 ML NEBU. NEB SCH ×4 (07:18→19:55)
[2019-11-16] MEDS: VITAMIN B12,B9,B6 COMPLEX 1 TABLET. PO SCH (08:19)
[2019-11-16] MEDS: SERTRALINE 25 MG TABLET. PO SCH (08:19)
[2019-11-16] MEDS: PANTOPRAZOLE 40 MG TABLET.DR. PO SCH (08:19)
--- NOTE | 2019-11-16 08:45 | PDOC ---
[facility] [facility] PROGRESS NOTE Chief Complaint Chief Complaint Acute right pneumothorax, status post chest tube placement 11/13/2019 Acute on chronic hypoxic respiratory failure COPD, severe, FEV1 of 0.76 Right upper lobe nodule supicious for cancer. 1.5cm Chest x-ray ordered for tomorrow in the morning Appreciate pulmonary recommendations, continue to titrate oxygen. Currently at 4 L. Chest tube continues to has persistent air leak on continuous suction. Repeat chest x-ray in the a.m. DuoNebs as needed Await final pathology results from lung biopsy. Once malignant malignancy is confirmed she may benefit from palliative radiation. SCD and ambulation for DVT prophylaxis Regular diet Full code Discussed with RN and SW Dispo pending chest tube removal and pathology results Surrogate decision maker is self History of Present Illness History of Present Illness Ms Torres is a 64 yo F w/ PMHx COPD, smoker who has a long history of tobacco u se, and recent diagnosis of hypermetabolic lung nodule. She underwent a CT- guided biopsy and developed a pneumothorax post-biopsy. As a result, she required chest tube. She has an air leak. 11/13: No acute events overnight. Chest tube continues to have persistent air leak while on continuous suction. Patient seen and examined bedside. Patient's chart, labs, images were reviewed and discussed with RN 11/14: No acute events overnight. Patient seen and examined bedside. Chest x-ray with improved aeration and apical pneumothorax has decreased. Patient's chart, labs, images were reviewed and discussed with RN Feeling improved, still on O2. Pain controlled. No air leak. CXR appears to have minimal apical PTX. No fevers. Vitals/I&O Vitals/I&O: Vital Signs Date Time Temp Pulse Resp B/P (MAP) Pulse Ox O2 Delivery O2 Flow Rate FiO2 11/16/19 07:18 97 Nasal Cannula 2.0 11/16/19 07:00 97.9 80 20 124/60 (81) 97.9 I & O 11/15/19 11/15/19 11/16/19 15:00 23:00 07:00 Intake Total 360 ml 1220 ml 550 ml Output Total 600 ml Balance 360 ml 620 ml 550 ml Physical Exam Physical Exam: General: Alert, Oriented X3, Cooperative, No acute distress HEENT: Atraumatic, PERRLA, Mucous membr. moist/pink Lungs: Normal air movement. Intact chest tube placed. Pleur-evac with persistent air leak. Serosanguineous drainage Heart: S1S2, no murmurs Abdomen: Normal bowel sounds, Soft Extremities: No cyanosis, No edema, Normal pulses Skin: No breakdown Neuro: Cranial nerves 3-12 NL Psych/Mental Status: Mood NL General: Alert, Oriented X3, Cooperative, No acute distress Lungs: Other (deminished bs r ct) Abdomen: Normal bowel sounds, Soft Extremities: No cyanosis, No edema, Normal pulses Skin: No breakdown Comment Review of Relevant I have reviewed the following items rohit (where applicable) has been applied. Medications: Current Medications Medications (Trade) Dose Ordered Sig/Austen Route PRN Reason Start Time Stop Time Status Last Admin Dose Admin Enoxaparin Sodium (Lovenox 40mg Syringe) 40 mg Q24H SQ 11/15/19 18:00 11/15/19 17:54 Justicifation of Admission Dx: Justifications for Admission: Justification of Admission Dx: Yes JOSE CHUN MD Nov 16, 2019 08:45
--- NOTE | 2019-11-16 10:01 | RAD ---
CHEST AP ONLY History: Reason: pneumothorax / Spl. Instructions: / History: Comparison: November 15, 2019 Findings: Stable right pigtail pleural drain. Decreased right apical pneumothorax with tiny residual pneumothorax. Hyperinflation with chronic interstitial thickening, unchanged. No pleural effusion. No new consolidation. Normal heart size. Impression: 1. Decreased right apical pneumothorax. Stable right pigtail pleural drain. Electronically signed by: Rashid Bravo DO (11/16/2019 9:58 AM) [id number]
--- NOTE | 2019-11-16 10:29 | NUR ---
SS following up with discharge planning. SS reviewed pt chart and discussed with pt RN. Pt currently has chest tube and is currently requiring oxygen. Pt has home oxygen with [employer], ; fax [phone]. Discharge plan is currently to home when ready. SS will continue to follow for discharge planning.
--- NOTE | 2019-11-16 10:46 | PDOC ---
PULMONARY PROGRESS NOTES Subjective Continues on N/C oxygen, no SOB, or increased cough CT remains to wall suction, no air leak today Vitals Vital Signs Date Time Temp Pulse Resp B/P (MAP) Pulse Ox O2 Delivery O2 Flow Rate FiO2 11/16/19 08:00 Nasal Cannula 2.0 11/16/19 07:18 97 11/16/19 07:00 97.9 80 20 124/60 (81) 97.9 ROS: No Nausea, No Chest Pain, No Abdominal Pain, No Increase Cough General: Alert, Oriented X4 HEENT: Other (nc at perrl nose throat clear) Lungs: Other (decreased BS ) Cardiovascular: S1, S2 Abdomen: Soft, Non-tender Neuro Exam: Alert, Oriented Extremities: No Edema Skin: Warm, Dry Medications Active Scripts Medications Dose Route/Sig Max Daily Dose Days Date Category Alprazolam 0.25 Mg Tablet 0.25 Mg PO PRN Q6HRS PRN 11/13/19 Reported Zoloft (Sertraline Hcl) 25 Mg Tablet 1 Tab PO DAILY 11/13/19 Reported Trelegy Ellipta 100-62.5-25 (Fluticasone/Umeclidin/Vilanter) 1 Each Blst.w.dev 1 Each IH DAILY 11/13/19 Reported Comments cxr 11/16 2019 Impression: 1. Decreased right apical pneumothorax. Stable right pigtail pleural drain. Impression . IMPRESSION: 1. acute on chronic hypoxic respiratory failure secondary to pneumothorax./ UNDERLYING SEVERE COPD 2. Spiculated right upper lobe nodule with increased growth and hypermetabolic activity seen in the right upper lobe nodule, which now measures 1.5 cm as opposed to 1.1 cm in 01/2019. This is highly suggestive of malignancy. She is status post biopsy. 3. End-stage chronic obstructive pulmonary disease with an FEV1 of 0.76, which is 34% predicted and severely reduced diffusion capacity, which is 30% predicted. She is not a surgical candidate based on severity of lung disease. 4. Status post pneumothorax post CT-guided biopsy. no air leak. Plan . RECOMMENDATIONS: 1. Continue present oxygen. She has acute on chronic hypoxic respiratory failure secondary to pneumothorax. 2. no air leak today, CXR reviewed will proceed with Chest tube to water seal. 3. Follow chest x-ray. 4. bronchodilators. 5. Await for the final biopsy results 6. lovenox for dvt prophylaxis Once malignancy is confirmed, then she may benefit from palliative radiation. Based on her lung function, she is not a surgical candidate. Discussed with the patient and RN, PASCUAL CANO MD Nov 16, 2019 10:46
[2019-11-16 11:00] VITALS: BP 146/71
[2019-11-16 15:00] VITALS: BP 118/51
--- NOTE | 2019-11-16 18:06 | PATHOLOGY ---
[facility] Accession Number: [id number] . 01 Material submitted: . lung - RIGHT LUNG BX. Modifiers: right . 01 Clinical history: . Right lung mass. . 02 Diagnosis: Lung tissue, right lung mass needle biopsies: - ADENOCARCINOMA, MODERATELY DIFFERENTIATED. SEE COMMENT. (JPM:rusty; 11/16/2019) S 11/16/2019 0902 Local . 02 Comment: Sections of the right lung mass needle biopsy show replacement of lung tissue by a malignant epithelial neoplasm. The latter is comprised of irregular glands which infiltrate an inflamed reactive desmoplastic stroma. The malignant glands are lined by atypical cells having eosinophilic cytoplasm and possessing enlarged, moderately pleomorphic hyperchromatic nuclei containing prominent nucleoli. The morphologic findings are supportive of the diagnosis of a moderately differentiated pulmonary acinar adenocarcinoma. The case is also examined by Dr. Thompson, who concurs with the diagnosis. (JPM:rusty; 11/16/2019) . 02 Electronically signed: . Shamar Dennis MD, Pathologist NPI- [id number] . 01 Gross description: . Received in formalin labeled "[place], [place], right lung BX" is a 1.0 x 0.2 x 0.1 cm aggregate of carlisle-white cylindrical soft tissue cores. The specimen is submitted entirely in cassettes A1-A2. ([facility] [place]; 11/13/2019) SYC/SYC 11/13/2019 1821 Local . 02 Pathologist provided ICD-10: C34.91 . 02 CPT . 841426 Specimen Comment: A courtesy copy of this report has been sent to [phone], [phone] Specimen Comment: [id number] Specimen Comment: Report sent to / DR POLK Performed at: [address] [place] [address] [address] [facility] [address], [place], [place] [id number] MD Rashad Vogt MD Phone: [phone] Performed at: [address] [id number] MD Shamar Dennis MD Phone: [phone]
[2019-11-16] MEDS: ENOXAPARIN 40 MG/0.4 ML SYRINGE. SQ SCH (18:27)
[2019-11-16 19:15] VITALS: BP 148/67
[2019-11-16 22:25] VITALS: BP 162/77
[2019-11-17 02:47] VITALS: BP 158/62
[2019-11-17 07:00] VITALS: BP 124/55
[2019-11-17] MEDS: IPRATRPIUM/ALBUTEROL 0.5/2.5MG 3 ML NEBU. NEB SCH ×2 (07:18→11:05)
[2019-11-17] MEDS: PANTOPRAZOLE 40 MG TABLET.DR. PO SCH (07:51)
[2019-11-17] MEDS: VITAMIN B12,B9,B6 COMPLEX 1 TABLET. PO SCH (07:51)
[2019-11-17] MEDS: SERTRALINE 25 MG TABLET. PO SCH (07:51)
--- NOTE | 2019-11-17 08:38 | PDOC ---
[facility] PROGRESS NOTE Date of Service DOS: DATE: 11/17/19 TIME: 08:38 Chief Complaint Chief Complaint Acute right pneumothorax, status post chest tube placement 11/13/2019 Acute on chronic hypoxic respiratory failure COPD, severe, FEV1 of 0.76 Right upper lobe nodule supicious for cancer. 1.5cm Chest x-ray ordered for tomorrow in the morning Appreciate pulmonary recommendations, continue to titrate oxygen. Currently at 4 L. Chest tube continues to has persistent air leak on continuous suction. Repeat chest x-ray in the a.m. DuoNebs as needed Await final pathology results from lung biopsy. Once malignant malignancy is confirmed she may benefit from palliative radiation. SCD and ambulation for DVT prophylaxis Regular diet Full code Discussed with RN and SW Dispo pending chest tube removal and pathology results Surrogate decision maker is self History of Present Illness History of Present Illness Ms Torres is a 64 yo F w/ PMHx COPD, smoker who has a long history of tobacco use, and recent diagnosis of hypermetabolic lung nodule. She underwent a CT- guided biopsy and developed a pneumothorax post-biopsy. As a result, she required chest tube. She has an air leak. 11/13: No acute events overnight. Chest tube continues to have persistent air leak while on continuous suction. Patient seen and examined bedside. Patient's chart, labs, images were reviewed and discussed with RN 8/2: No acute events overnight. Patient seen and examined bedside. Chest x-ray with improved aeration and apical pneumothorax has decreased. Patient's chart, labs, images were reviewed and discussed with RN 8/3: Feeling improved, still on O2. Pain controlled. No air leak. CXR appears to have minimal apical PTX. No fevers. Improved overall, still on O2. Pain controlled no airleak, her chest tube is clamped unchanged chest x-ray. Vitals/I&O Vitals/I&O: Vital Signs Date Time Temp Pulse Resp B/P (MAP) Pulse Ox O2 Delivery O2 Flow Rate FiO2 11/17/19 07:18 97 Nasal Cannula 2.0 11/17/19 07:00 98.1 75 20 124/55 (78) 98.1 I & O 11/16/19 11/16/19 11/17/19 15:00 23:00 07:00 Intake Total 180 ml 580 ml 500 ml Output Total 0 ml 0 ml Balance 180 ml 580 ml 500 ml Physical Exam Physical Exam: General: Alert, Oriented X3, Cooperative, No acute distress HEENT: Atraumatic, PERRLA, Mucous membr. moist/pink Lungs: Normal air movement. Intact chest tube placed. Pleur-evac with persistent air leak. Serosanguineous drainage Heart: S1S2, no murmurs Abdomen: Normal bowel sounds, Soft Extremities: No cyanosis, No edema, Normal pulses Skin: No breakdown Neuro: Cranial nerves 3-12 NL Psych/Mental Status: Mood NL General: Alert, Oriented X3, Cooperative, No acute distress Lungs: Other (decreased BS ) Abdomen: Normal bowel sounds, Soft Extremities: No cyanosis, No edema, Normal pulses Skin: No breakdown Comment Review of Relevant I have reviewed the following items rohit (where applicable) has been applied. Justicifation of Admission Dx: Justifications for Admission: Justification of Admission Dx: Yes JOSE CHUN MD Nov 17, 2019 08:38
--- NOTE | 2019-11-17 09:35 | NUR ---
SS following up with discharge planning. SS reviewed pt chart and discussed with pt RN. Pt currently requiring oxygen. Pt has home oxygen at home. Pt having chest x-ray today to assess if chest tube can be clamped. Discharge plan is to home when medically ready. SS will continue to follow for discharge planning.
--- NOTE | 2019-11-17 09:43 | RAD ---
PORTABLE CHEST 1V History: Reason: PNEUMOTHORAX / Spl. Instructions: / History: Comparison: November 16, 2019 Findings: Stable right pigtail pleural catheter. No pneumothorax. Hyperinflation with emphysematous changes. Unchanged heart size. No pleural effusion. Impression: 1. Stable right pigtail pleural drain. No pneumothorax. Electronically signed by: Rashid Bravo DO (11/17/2019 9:40 AM) [facility] [place]
[2019-11-17 10:44] VITALS: BP 139/62
--- NOTE | 2019-11-17 10:59 | PDOC ---
PULMONARY PROGRESS NOTES DATE: 11/17/19 TIME: 10:54 Subjective Continues on N/C oxygen, no SOB, or increased cough CT remains to wall suction, no air leak today Vitals Vital Signs Date Time Temp Pulse Resp B/P (MAP) Pulse Ox O2 Delivery O2 Flow Rate FiO2 11/17/19 10:44 98.1 78 16 139/62 (87) 98 Nasal Cannula 2.0 98.1 ROS: No Nausea, No Chest Pain, No Abdominal Pain, No Increase Cough General: Alert, Oriented X4 HEENT: Other (nc at perrl nose throat clear) Lungs: Other (decreased BS ) Cardiovascular: S1, S2 Abdomen: Soft, Non-tender Neuro Exam: Alert, Oriented Extremities: No Edema Skin: Warm, Dry Medications Active Scripts Medications Dose Route/Sig Max Daily Dose Days Date Category Alprazolam 0.25 Mg Tablet 0.25 Mg PO PRN Q6HRS PRN 11/13/19 Reported Zoloft (Sertraline Hcl) 25 Mg Tablet 1 Tab PO DAILY 11/13/19 Reported Trelegy Ellipta 100-62.5-25 (Fluticasone/Umeclidin/Vilanter) 1 Each Blst.w.dev 1 Each IH DAILY 11/13/19 Reported Comments cxr 11/17 2019 no PTX Impression . IMPRESSION: 1. acute on chronic hypoxic respiratory failure secondary to pneumothorax./ UNDERLYING SEVERE COPD 2. Spiculated right upper lobe nodule with increased growth and hypermetabolic activity seen in the right upper lobe nodule, which now measures 1.5 cm as opposed to 1.1 cm in 01/2019. This is highly suggestive of malignancy. She is status post biopsy. Adenocarcinoma 3. End-stage chronic obstructive pulmonary disease with an FEV1 of 0.76, which is 34% predicted and severely reduced diffusion capacity, which is 30% predicted. She is not a surgical candidate based on severity of lung disease. 4. Status post pneumothorax post CT-guided biopsy. no air leak. Plan . RECOMMENDATIONS: 1. Continue present oxygen. She has acute on chronic hypoxic respiratory failure secondary to pneumothorax. 2. no air leak today, CXR reviewed ,no PTX. will clamp chest tube. repeat cxr. If no PTX, remove chest tube and dc home 3. d/w pathology. Bx c/w [place] ca . consult radiation oncology. 4. bronchodilators. 5. Based on her lung function, she is not a surgical candidate. Discussed with the patient and RN, addend: Pt wants to think about any form of treatment. She has appointment with Dr Chappell in sept. chest tube out. ok with nd home PASCUAL CANO MD Nov 17, 2019 10:59
[2019-11-17] MEDS ORDERED: PANT40TA77 PO (11:35)
--- NOTE | 2019-11-17 11:38 | PDOC3 ---
Discharge Summary Visit Information Date of Admission: Nov 14, 2019 Date of Discharge: Nov 17, 2019 Admitting Diagnosis: Right pneumothorax Final Diagnosis Right pneumothorax Brief Hospital Course Allergies Allergies Coded Allergies Type Severity Reaction Last Updated Verified No Known Drug Allergies 10/08/18 No Vital Signs Vital Signs Date Time Temp Pulse Resp B/P (MAP) Pulse Ox O2 Delivery O2 Flow Rate FiO2 11/17/19 11:06 97 Nasal Cannula 2.0 11/17/19 10:44 98.1 78 16 139/62 (87) 98.1 Brief Hospital Course Ms Torres is a 64 yo F w/ PMHx COPD, smoker who has a long history of tobacco use, and recent diagnosis of hypermetabolic lung nodule. She underwent a CT- guided biopsy and developed a pneumothorax post-biopsy. As a result, she required chest tube. She has an air leak. 11/13: No acute events overnight. Chest tube continues to have persistent air leak while on continuous suction. Patient seen and examined bedside. Patient's chart, labs, images were reviewed and discussed with RN 8/2: No acute events overnight. Patient seen and examined bedside. Chest x-ray with improved aeration and apical pneumothorax has decreased. Patient's chart, labs, images were reviewed and discussed with RN 8/3: Feeling improved, still on O2. Pain controlled. No air leak. CXR appears to have minimal apical PTX. No fevers. Improved overall, still on O2. Pain controlled no airleak, her chest tube was clamped unchanged chest x-ray, chest tube pulled by pulmonology and discharged home into the care of her daughter. 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 Problem list: Acute right pneumothorax, status post chest tube placement 11/13/2019 Acute on chronic hypoxic respiratory failure COPD, severe, FEV1 of 0.76 Right upper lobe nodule supicious for cancer. 1.5cm Appreciate pulmonary recommendations, continue to titrate oxygen. Currently at 4 L DuoNebs as needed Greater than 30 minutes spent on d/c home Discharge Information Condition at Discharge: Improved Follow Up: Weeks Disposition/Orders: D/C to Home Scheduled Fluticasone/Umeclidin/Vilanter (Trelegy Ellipta 100-62.5-25) 1 Each Blst.w.dev, 1 EACH IH DAILY for lung function, (Reported) Entered as Reported by: PETER WATKINS on 11/13/19732 Last Taken: Unknown Dose on 11/12/19 Last Action: Converted on 11/13/19 130 by NAKUL PANDA Pantoprazole Sodium (Pantoprazole Sodium ) 40 Mg Tablet.dr, 40 MG PO DAILYAC for ILD for 90 Days, #90 Ref 3 Prescribed by: JOSE CHUN MD on 11/17/19 1135 Sertraline Hcl (Zoloft) 25 Mg Tablet, 1 TAB PO DAILY for antidepressant, #30 Ref 2 (Reported) Entered as Reported by: PETER WATKINS on 11/13/19732 Last Taken: Unknown Dose on 11/12/19 Last Action: Continued on 11/13/196 by NAKUL PANDA Scheduled PRN Alprazolam (Alprazolam) 0.25 Mg Tablet, 0.25 MG PO PRN Q6HRS PRN for ANXIETY / AGITATION, Ref 0 (Reported) Entered as Reported by: PETER WATKINS on 11/13/19732 Last Taken: Unknown Dose on Unknown Date & Time Last Action: Continued on 11/13/19 1306 by NAKUL PANDA Justicifation of Admission Dx: Justifications for Admission: Justification of Admission Dx: Yes JOSE CHUN MD Nov 17, 2019 11:38
[2019-11-17 14:00] VITALS: BP 155/71
--- NOTE | 2019-11-17 14:28 | RAD ---
PORTABLE CHEST 1V History: Reason: CHest tube clamped / Spl. Instructions: / History: Comparison: November 17, 2019 Findings: Stable right pigtail pleural drain. No pneumothorax. Interstitial thickening relate to chronic interstitial changes. No pleural effusion. No consolidation. Normal heart size. Impression: 1. Stable right pigtail pleural drain. No pneumothorax. Electronically signed by: Rashid Bravo DO (11/17/2019 2:24 PM) [facility]
--- NOTE | 2019-11-17 17:17 | NUR ---
Discharge Note: SANDRA JAIME Discharge instructions and discharge home medications reviewed with Patient and a copy given. All questions have been answered and understanding verbalized. The following instructions and handouts were given: chest tube, pantoprazole Patient discharged to home with self via wheelchair.
== END 2019-11-17 16:36 | disposition home or self-care (01) | DRG 199 ==
LOC: INTRAD 07:12 → 2 NORTH 09:34 → OBSVTOIN 11-14 20:51
PROVIDERS: ADMIT Internal Medicine; ATTEND Internal Medicine
PROC: 0BBC3ZX Excision of Right Upper Lung Lobe, Percutaneous Approach, Diagnostic (ICD-10-PCS; principal; 2019-11-13)
PROC: 0W9930Z Drainage of Right Pleural Cavity with Drainage Device, Percutaneous Approach (ICD-10-PCS; 2019-11-13)
DX: J95.811 Postprocedural pneumothorax (principal); J96.21 Acute and chronic respiratory failure with hypoxia; C34.91 Malignant neoplasm of unspecified part of right bronchus or lung; Y84.8 Other medical procedures as the cause of abnormal reaction of the patient, or of later complication, without mention of misadventure at the time of the procedure; I10 Essential (primary) hypertension; J44.9 Chronic obstructive pulmonary disease, unspecified; F41.9 Anxiety disorder, unspecified; Z82.49 Family history of ischemic heart disease and other diseases of the circulatory system; Z82.5 Family history of asthma and other chronic lower respiratory diseases; Z87.891 Personal history of nicotine dependence; Z79.899 Other long term (current) drug therapy
CPT/HCPCS: 32405; 32557; 36415; 71045; 85025; 85610; 85730; 88305; 94640; 94760; 99152; 99153; A4215; C1729; C1892; C1894; G0378; G0379; J1650; J2250; J3010; J3490

== ENCOUNTER → 2020-03-25 | Outpatient (CLI) | payer MEDICARE ==
[~2020-03-25] MED LIST changes: +ALPR0.254 PO; +FLUT1BLS3 IH; +PANT40TA77 PO
--- NOTE | 2020-03-28 17:26 | RAD ---
EXAM: PET/CT, skull to midthigh. EXAM DATE: 03/25/2020 INDICATION: Lung nodule. RADIOPHARMACEUTICAL: 13.3 mCi of F-18 Fluorodeoxyglucose (FDG) I.V. via the left antecubital fossa. TECHNIQUE: Patient weight: 118 pounds. Following at least four-hour fasting, the patient's blood gluc ose was 114 mg/dl. Approximately 1.5 hours after administration of FDG, overlapping emission scannin g was performed from the orbital meatal line through the pelvis. A low-dose CT was performed for att enuation correction purposes and anatomic localization. Fused images of PET and CT were reviewed. An y standardized uptake values (SUV) reported are maximum values within a volume region of interest, ex pressed in gm/ml. COMPARISON: PET CT of 10/02/[address]-guided right lung biopsy of 11/13/2019. FINDINGS: PET: In the head and neck, no abnormal FDG uptake is identified. In the chest, the previously biopsied peripheral right upper lobe lung nodule near the apex shows int erval decreased but still abnormal FDG uptake to a max SUV of 2.49, compared with 7.08 previously. No other abnormal FDG uptake is identified. In particular, the 8mm left lower lobe pulmonary nodule pre viously noted (image 160 of series 3 this exam) shows no abnormal FDG uptake. Background activity in the mediastinum measures 2.06 (previously 2.0). In the abdomen and pelvis, there is persistent asymmetric abnormal FDG uptake in the left quadratus l umborum muscle showing a max SUV of 5.29, compared with 3.99 previously. Background activity in the liver shows a max SUV of 2.36 (previously 2.15). No abnormal activity in t he bones. CT: In the head and neck, no significant findings appreciated on noncontrast CT. In the chest, centrilobular emphysema is redemonstrated. The pneumothorax post biopsy in the right ch est on the prior exam has since resolved, as has the small amount of pleural fluid also previously ev ident. No hilar or mediastinal mass or adenopathy. The peripheral right apical lung nodule targeted f or biopsy is marginally smaller in the interval measuring 1.3 x 1.0 cm (image 82 series 3 this exam) compared with 1.3 x 1.3 cm (image 71 series 3 on the prior PET/CT scan). In the abdomen and pelvis no mass or adenopathy is apparent. Extensive arterial calcifications in the abdominal aorta are present and in its pelvic inflow vessels. The solid abdominal and pelvic organs are unremarkable. No acute findings in the bowel. Bones show mild rightward convexity scoliosis and generalized demineralization. No acute or aggressiv e appearing osseous lesions. IMPRESSION: 1. Emphysema with interval decrease in size and FDG activity in the peripheral right upper lobe pulmo nary nodule with no additional abnormal FDG uptake suspicious for malignancy. 2. Uptake in the left quadratus lumborum muscle persists and likely reflects compensatory muscular ac tivity for spinal scoliosis. Electronically signed by: Debbie Moulton MD (03/28/2020 5:23 PM) [id number]
== END ==
LOC: PETSC 08:25
PROVIDERS: ATTEND Radiology Radiation Oncology
DX: J43.2 Centrilobular emphysema (principal); R91.1 Solitary pulmonary nodule; I70.0 Atherosclerosis of aorta
CPT/HCPCS: 78815; A9552